=== PATIENT | male | born 1975 | race Caucasian/White ===

== ENCOUNTER 2017-06-25 22:45 | Emergency (ER) | payer SELFPAY ==
[2017-06-25 23:19] VITALS: BP 132/83; PULSE 70; TEMP 97.8; BMI 27.1
[2017-06-26] MEDS ORDERED: ASPIRIN 81 MG CHEWABLE TABLETS PO ONE (00:05)
--- NOTE | 2017-06-26 00:05 | PDOC ---
History of Present Illness - General Chief Complaint: Pain Stated Complaint: CHEST PAIN Time Seen by Provider: 06/26/17 00:05 History Source: Patient - History of Present Illness Initial Comments: 06/26/17 00:39 41-year-old male left sided chest pain started prior to arrival with dizziness and chest tightness with pain radiating to left axilla. Patient also reports slight nausea. Patient reports that he went to the store and bought aspirin and took 2 doses prior to arrival. Patient is an everyday smoker. Strong family history of heart disease. Father from cardiomyopathy. Patient reports that he hasn't been doing doctor in 5 years unsure of any underlying medical problems. 06/26/17 00:51 Past History - Past Medical History Allergies/Adverse Reactions: Allergies Allergy/AdvReac Type Severity Reaction Status Date / Time No Known Allergies Allergy Verified 06/25/17 23:16 Home Medications: Ambulatory Orders No Home Medications 0 dose .ROUTE UTDICT 11/05/12 COPD: No Other medical history: Pt denies - Family Disease History Family Disease History: Heart Disease: Father (cardiomyopathy) - Suicide/Smoking/Psychosocial Hx Smoking Status: Yes Smoking History: Current every day smoker Have you smoked in the past 12 months: No Number of Cigarettes Smoked Daily: 20 Information on smoking cessation initiated: No Hx Alcohol Use: No Drug/Substance Use Hx: No Substance Use Type: None Review of Systems - Review of Systems Able to Perform ROS?: Yes Is the patient limited Upper Sorbian proficient: No Constitutional: No: Symptoms Reported, See HPI, Chills, Diaphoresis, Fever, Loss of Appetite, Malaise, Night Sweats, Weakness, Weight Stable, Unintentional Wgt. Loss, Unexplained wgt Loss, Other Cardiac (ROS): Yes: Chest Pain ABD/GI: Yes: Nausea. No: Symptoms Reported, See HPI, Abdominal Distended, Abd. Pain w/ defecation, Blood Streaked Bowels, Constipated, Diarrhea, Difficulty Swallowing, Poor Appetite, Poor Fluid Intake, Rectal Bleeding, Vomiting, Indigestion, Abdominal cramping, Tarry Stools, Other Neurological: Yes: Dizziness. No: Symptoms reported, See HPI, Headache, Numbness, Paresthesia, Pre-Existing Deficit, Seizure, Tingling, Tremors, Weakness, Unsteady Gait, Ataxia, Other *Physical Exam - Vital Signs Last Vital Signs Temp Pulse Resp BP Pulse Ox 97.8 F 70 18 132/83 98 06/25/17 23:16 06/25/17 23:16 06/25/17 23:16 06/25/17 23:16 06/25/17 23:16 - Physical Exam General Appearance: Yes: Appropriately Dressed Respiratory/Chest: positive: Lungs Clear, Normal Breath Sounds Cardiovascular: positive: Regular Rhythm, Regular Rate Gastrointestinal/Abdominal: positive: Normal Bowel Sounds, Soft Extremity: positive: Normal Capillary Refill, Normal Inspection, Normal Range of Motion Integumentary: positive: Normal Color, Dry, Warm Neurologic: positive: Fully Oriented, Alert, Normal Mood/Affect ED Treatment Course - LABORATORY CBC & Chemistry Diagram: 06/26/17 00:46 06/26/17 00:46 - RADIOLOGY Chest X-Ray Result: No Infiltrates (official read pending.) Medical Decision Making - Medical Decision Making 06/26/17 00:51 CHest pain P; EKG CHest xray cbc cmp cardiac enzymes Plan to place patient on observation for serial troponins, Cardiology work up. Patient unwilling to be stay. signed out AMA. All risk factors including discussed with patient. *DC/Admit/Observation/Transfer Diagnosis at time of Disposition: Chest pain - Discharge Dispostion Disposition: AGAINST MEDICAL ADVICE - Referrals - Patient Instructions - Post Discharge Activity
[2017-06-26 00:54] LABS: BASO % 1.2 % (0-2.0); EOS % 1.9 % (0-4.5); HEMATOCRIT 46.2 % (35.4-49); HEMOGLOBIN 15.9 GM/dL (11.7-16.9); LYMPH % 29.4 % (8-40); MCH 31.4 pg (25.7-33.7); MCHC 34.3 g/dl (32.0-35.9); MEAN CELL VOLUME 91.4 fl (80-96); MEAN PLT VOLUME 8.5 fl (7.5-11.1); NEUT % 58.5 % (42.8-82.8); PLATELET COUNT 232 K/MM3 (134-434); RBC 5.05 M/mm3 (4.00-5.60); RDW 13.4 % (11.9-15.9); WHITE BLOOD COUNT 9.2 K/mm3 (4.0-10.0)
[2017-06-26 01:19] LABS: ANION GAP 9 (8-16); BILIRUBIN,TOTAL 0.4 mg/dL (0.2-1.0); BLOOD UREA NITROGEN 16 mg/dL (7-18); CHLORIDE 106 mmol/L (98-107); CO2 25 mmol/L (21-32); GLUCOSE,RANDOM 93 mg/dL (74-106); MAGNESIUM 2.4 mg/dL (1.8-2.4); POTASSIUM 4.4 mmol/L (3.5-5.1); SGOT/AST 17 U/L (15-37); SGPT/ALT 24 U/L (12-78); SODIUM 140 mmol/L (136-145); TOT PROT 7.5 g/dl (6.4-8.2)
[2017-06-26 01:22] LABS: ALK PHOS 56 U/L (45-117)
[2017-06-26 01:24] LABS: INR 0.96 (0.82-1.09); PROTHROMBIN TIME (PATIENT) 10.9 SEC (9.98-11.88)
--- NOTE | 2017-06-26 14:17 | EKG ---
Test Reason : Blood Pressure : / mmHG Vent. Rate : 074 BPM Atrial Rate : 074 BPM P-R Int : 144 ms QRS Dur : 090 ms QT Int : 370 ms P-R-T Axes : 043 -03 039 degrees QTc Int : 410 ms NORMAL SINUS RHYTHM POSSIBLE INFERIOR INFARCT , AGE UNDETERMINED ABNORMAL ECG NO PREVIOUS ECGS AVAILABLE Confirmed by MD Enda, Alejandro ([id number]) on 06/26/2017 2:16:22 PM Referred By: Confirmed By:Alejandro Bishop MD
== END 2017-06-26 04:17 | disposition left against medical advice (07) ==
LOC: JER 22:45
DX: R07.9 Chest pain, unspecified (principal); F17.210 Nicotine dependence, cigarettes, uncomplicated
CPT/HCPCS: 36415; 71046-TC-FY; 80053; 82550; 82553; 83735; 84484; 85025; 85610; 93005; 93010; 99283-25